=== PATIENT | male | born 1980 | race Caucasian/White ===

== ENCOUNTER 2018-01-14 11:18 | Emergency (ER) | payer BC, OTHER ==
--- NOTE | 2018-01-14 13:12 | RAD ---
Indication: Left elbow pain. 4 views of left elbow demonstrates no fracture. No other bone or joint abnormality is identified. IMPRESSION: No fracture of left elbow is noted.
[2018-01-14 13:38] VITALS: BP 132/84
--- NOTE | 2018-01-14 13:51 | ED ---
Upper Extremity Pain - HPI Summary HPI Summary: Pt. is a 37 y.o male who presents to the ER for complaints of worsening left elbow pain x 1 year. Pt. does not recall any specific injury or fall. 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 Symptoms are mild in severity. Moving elbow and grasping with hand makes symptoms worse. Nothing makes symptoms better. Pt. has not tried taking any OTC analgesics. - History of Current Complaint Chief Complaint: EDExtremityUpper Stated Complaint: LT ARM PAIN Time Seen by Provider: 01/14/18 11:38 Hx Obtained From: Patient - Allergies/Home Medications Allergies/Adverse Reactions: Allergies Allergy/AdvReac Type Severity Reaction Status Date / Time No Known Allergies Allergy Verified 01/14/18 11:30 PMH/Surg Hx/FS Hx/Imm Hx Previously Healthy: Yes Endocrine/Hematology History: Denies: Hx Diabetes, Hx Thyroid Disease Cardiovascular History: Denies: Hx Hypertension Respiratory History: Denies: Hx Asthma, Hx Chronic Obstructive Pulmonary Disease (COPD) GI History: Reports: Hx Gall Bladder Disease Denies: Hx Ulcer History: Denies: Hx Renal Disease Musculoskeletal History: Reports: Hx Back Problems - back pain, Other Musculoskeletal History - herniated disc Sensory History: Denies: Hx Contacts or Glasses, Hx Hearing Aid Opthamlomology History: Denies: Hx Contacts or Glasses - Surgical History Surgery Procedure, Year, and Place: [facility] 10/12/14 Hx Anesthesia Reactions: No - Immunization History Immunizations Up to Date: Yes Infectious Disease History: No Infectious Disease History: Denies: Hx Hepatitis, Hx Human Immunodeficiency Virus (HIV), Traveled Outside the in Last 30 Days - Social History Occupation: Employed Full-time Lives: With Family Alcohol Use: Occasionally Alcohol Amount: 2 beers once a week Substance Use Type: Reports: None Smoking Status (MU): Never Smoked Tobacco Review of Systems Positive: Other - Left elbow pain. Negative: Weakness, Paresthesia, Numbness All Other Systems Reviewed And Are Negative: Yes Physical Exam Triage Information Reviewed: Yes Vital Signs On Initial Exam: Initial Vitals Temp Pulse Resp BP Pulse Ox 98.0 F 73 15 162/89 99 01/14/18 11:24 01/14/18 11:24 01/14/18 11:24 01/14/18 11:24 01/14/18 11:24 Vital Signs Reviewed: Yes Appearance: Positive: Well-Appearing - Pt. sitting on bed in NAD. S.O present. Skin: Positive: Warm, Dry Head/Face: Positive: Normal Head/Face Inspection Eyes: Positive: Normal Musculoskeletal: Positive: Other - Left arm is neurovascularly intact. 5/5 strength in hand. Pain on palpation over the lateral epicondyl of left elbow. No overlying erythema or edema. Full ROM of elbow with pain. Neurological: Positive: Normal, CN Intact II-III Diagnostics - Vital Signs Vital Signs Temp Pulse Resp BP Pulse Ox 01/14/18 13:37 98.2 F 61 16 132/84 99 01/14/18 11:24 98.0 F 73 15 162/89 99 - Laboratory Lab Statement: Any lab studies that have been ordered have been reviewed, and results considered in the medical decision making process. Course/Dx - Course Course Of Treatment: Pt. presenting with elbow pain x one year. History and exam are most consistent with lateral epicondylitis. Pt. requesting xray. Elbow xray is negative for acute findings, reading per radiology. Will treat with NSAIDs, ice, elevation. Advised pt. to get an OTC support band for elbow. To avoid over use. To f.u with PCP is symptoms persist. Pt. understands and agrees with plan. - Diagnoses Differential Diagnosis/HQI/PQRI: Positive: Bursitis, Contusion, Fracture (Closed ), Strain, Sprain Provider Diagnoses: Lateral epicondylitis of elbow Discharge - Sign-Out/Discharge Documenting (check all that apply): Discharge/Admit/Transfer - Discharge Plan Condition: Good Disposition: HOME Prescriptions: Naproxen [Naproxen 500 mg tab] 500 mg PO Q12HR #20 tablet Patient Education Materials: Tennis Elbow (ED) Referrals: Kiarra Woodruff MD [Primary Care Provider] - Additional Instructions: Call PCP for a follow up appointment Take medication as directed Ice and elevate Avoid over use Get an over the counter elbow brace for support - Billing Disposition and Condition Condition: GOOD Disposition: HOME
== END 2018-01-14 13:38 | disposition home or self-care (01) ==
LOC: ED 11:18
DX: M77.12 Lateral epicondylitis, left elbow (principal)
CPT/HCPCS: 99282

== ENCOUNTER 2019-05-07 10:01 | Emergency (ER) | payer OTHER ==
[2019-05-07 10:25] VITALS: BP 125/78
--- NOTE | 2019-05-07 11:22 | UC ---
Elbow Pain - HPI Summary HPI Summary: CHIEF COMPLAINT and HPI: This is a 38-year-old male with complaint of left elbow discomfort, worse with twisting and flexion. This condition has become worse over the last 2 weeks. 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 He had a similar complaint approximately one year ago that only resolved with a steroid injection to the left elbow. the elbow pain does not radiate. It's worse with movement and it's of moderate severity.Patient has a second complaint of sore throat over the last 3 days. VITAL SIGNS & SaO2 REVIEWED. Within normal limits unless noted here. 125/78 NURSES NOTE REVIEWED. - History of Current Complaint Chief Complaint: UCGeneralIllness Stated Complaint: L ELBOW PAIN Time Seen by Provider: 05/07/19 10:27 Pain Intensity: 9 - Allergies/Home Medications Allergies/Adverse Reactions: Allergies Allergy/AdvReac Type Severity Reaction Status Date / Time No Known Allergies Allergy Verified 05/07/19 10:18 Home Medications: Home Medications Diphenhydra/Phenyleph/Acetamin [Cold & Flu Relief Multi-Sym Lq] 180 ml PO ONCE 05/07/19 [History Confirmed 05/07/19] PMH/Surg Hx/FS Hx/Imm Hx - Additional Past Medical History Additional PMH: PAST MEDICAL HISTORY- CHRONIC and RECURRENT HEALTH PROBLEM LIST REVIEWED. Information relevant to present complaint: VISIT HISTORY REVIEWED: MEDICATIONS & ALLERGIES REVIEWED. HYPERTENSION STATUS: FAMILY HISTORY: Positive for: diabetes, Patient denies family history of: hypertension, cardiovascular disease, stroke, cancer. SOCIAL HISTORY: works as a business technology analyst. Previously Healthy: Yes - Surgical History Surgical History: Yes Surgery Procedure, Year, and Place: [facility] 10/12/14 - Social History Alcohol Use: Occasionally Alcohol Amount: 2 beers once a week Substance Use Type: None Smoking Status (MU): Never Smoked Tobacco - Immunization History Most Recent Influenza Vaccination: none Most Recent Tetanus Shot: unknown Most Recent Pneumonia Vaccination: none Review of Systems All Other Systems Reviewed And Are Negative: Yes ENT: Positive: Sore Throat Respiratory: Negative: Cough Cardiovascular: Positive: Negative Gastrointestinal: Positive: Negative Genitourinary: Positive: Negative Musculoskeletal: Positive: Arthralgia, Myalgia - left elbow. Negative: Edema Physical Exam - Summary Physical Exam Summary: Appearance: The patient is well-appearing, is in no pain or distress, and is well-nourished. Eyes: Conjunctiva are clear. Pupils are equal and reactive to light and accommodation. Extra ocular muscle movement is intact. ENT: The hearing is grossly normal, the pharynx is mildly erythematous, and the TMs are normal. There is no muffled or hoarse voice. No stridor. Neck: The neck is supple and there is no lymphadenopathy. Respiratory: The chest is non-tender to palpation and without crepitus. The lungs are clear, there are normal breath sounds, and there is no respiratory distress. No wheezes, rales or rhonchi. Cardiovascular: Heart sounds reveal a regular rate and rhythm. There are no clicks, rubs or murmurs. There are no carotid bruits or thrills. Circulation is grossly intact. Abdomen: The abdomen is soft and nontender. There is no organomegaly. Bowel sounds are present and within normal limits. No point tenderness at McBurneys point. No CVA tenderness. Musculoskeletal: Strength is intact. The patient moves all extremities. left elbow: Tender with flexion over the distal humerus and proximal radius. Point tenderness near the insertion of the biceps tendon. Distal circulatory, motor, and sensory intact. Neurological: The patient is alert. Motor and sensory are examination grossly intact. Speech is normal. Psychological: The patient displays age appropriate behavior, and is conversant. GCS=15. Skin: Negative for rashes. Systolic blood pressure of 125 noted. Probably related to pain or the size of the blood pressure cuff. Patient informed to recheck blood pressure over the next month. RAPID STREP: negative Left elbow: Negative for fx. Triage Information Reviewed: Yes Vital Signs: Initial Vital Signs Temp 99 F 05/07/19 10:20 Pulse 66 05/07/19 10:20 Resp 18 05/07/19 10:20 BP 125/78 05/07/19 10:20 Pulse Ox 96 05/07/19 10:20 Elbow Pain Course/Dx - Course Course Of Treatment: This is a 38-year-old male with complaint of left elbow discomfort, worse with twisting and flexion. This condition has become worse over the last 2 weeks. 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 He had a similar complaint approximately one year ago that only resolved with a steroid injection to the left elbow. the elbow pain does not radiate. It's worse with movement and it's of moderate severity.Patient has a second complaint of sore throat over the last 3 days. - Differential Dx/Diagnosis Differential Diagnosis/HQI/PQRI: Tendonitis Provider Diagnosis: Tendonitis Discharge ED - Sign-Out/Discharge Documenting (check all that apply): Patient Departure All imaging exams completed and their final reports reviewed: Yes - Discharge Plan Condition: Stable Disposition: HOME Prescriptions: Dexamethasone TAB* [Decadron TAB*] 4 mg PO DAILY #4 tab MDD 2 PILLS Patient Education Materials: Pharyngitis (ED), Tendinitis (ED) Referrals: No Primary Care Phys,NOPCP [Primary Care Provider] - Stefani Amanda MD [Medical Doctor] - Additional Instructions: WE DISCUSSED: PLEASE SEEK CARE AT THE EMERGENCY DEPARTMENT IF SYMPTOMS WORSEN OR IF NEW SYMPTOMS DEVELOP. FOLLOW UP WITH YOUR PRIMARY CARE PHYSICIAN IF CONDITION CONTINUES BEYOND 3 DAYS WITHOUT IMPROVEMENT. YOUR DIAGNOSIS IS:tendinitis, left elbow; viral pharyngitis. YOUR PRESCRIPTION RECOMMENDATION IS:dexamethasone 8 mg a day for 2 days for inflammation. OTHER INSTRUCTIONS: Hypertension Discharge Instructions: Your blood pressure reading today was slightly elevated. Recheck it over the next 2 months. FOR PAIN AND/OR SLEEP: For pain: Ibuprofen (Motrin and other brand names) 400-600mg PLUS acetaminophen (Tylenol and other brand names) 500mg - 1000mg every 8 hours. Benadryl may also help but don't take it when you are driving. FOR sore throat: tea and honey; keep throat moist. REFERRAL TO ORTHOPEDICS. DR. AMANDA FOR FURTHER EVALUATION AND TREATMENT. - Billing Disposition and Condition Condition: STABLE Disposition: Home
== END 2019-05-07 11:37 | disposition home or self-care (01) ==
LOC: UCEAST 10:01
DX: M77.9 Enthesopathy, unspecified (principal)
CPT/HCPCS: 87651; 99212; G0463